=== PATIENT | male | born 1960 | race Caucasian/White ===

== ENCOUNTER 2020-03-21 14:52 | Outpatient (REF) | payer MEDICAID, SELFPAY ==
[2020-03-21 13:20] LABS: Abs Immature Grans 0.02 10^3/uL (0.0-0.06); Absolute Basophil Count 0.04 10^3/uL (0.0-0.2); Absolute Eosinophil Count 0.13 10^3/uL (0.0-0.7); Absolute Lymphocyte Count 1.25 10^3/uL (1.2-3.4); Absolute Neutrophil Count 4.61 10^3/uL (1.2-6.7); Basophils % 0.6; HCT 40.9 % (40.0-50.0); HGB 13.6 g/dL (13.5-17.5); Immature Grans % 0.3; Lymphocytes % 19.1; MCH 30.1 pg (27.0-33.0); MCHC 33.3 % (32.0-36.0); MCV 90.5 fL (80-95); Monocytes % 7.6; Neutrophils % 70.4; Nucleated RBC 0 %; Platelet Count 190 10^3/uL (130-400); RBC 4.52 10^6/uL (4.36-5.78); RDW 13.7 % (11.8-14.1); RDW-SD 46.1 fL; WBC 6.55 10^3/uL (4.4-10.8)
== END 2020-03-21 14:53 | disposition home or self-care (01) ==
LOC: NCHCN 14:52
PROVIDERS: PCP Nurse Practitioner Community Health; Visit Provider Nurse Practitioner Community Health
DX: R10.30 Lower abdominal pain, unspecified (principal)
CPT/HCPCS: 85025

== ENCOUNTER 2020-07-17 13:24 | Outpatient (REF) | payer MEDICAID, SELFPAY ==
[2020-07-17 21:56] LABS: PSA, Screening 0.2 ng/mL (0.0-3.5)
== END 2020-07-17 13:25 | disposition home or self-care (01) ==
LOC: NCHCN 13:24
PROVIDERS: PCP Nurse Practitioner Community Health; Visit Provider Nurse Practitioner Community Health
DX: R39.89 Other symptoms and signs involving the genitourinary system (principal); Z12.5 Encounter for screening for malignant neoplasm of prostate
CPT/HCPCS: 84153